=== PATIENT | male | born 1960 | race Caucasian/White ===

== ENCOUNTER 2017-11-16 06:01 | Inpatient (IN) ==
[2017-11-12 14:54] LABS: Appearance,Urine CLEAR; Bilirubin,Urine NEG (NEG); Color,Urine STRAW; Glucose,Urine (UA) NEGATIVE (NEG); Leukocyte Esterase,Urine NEG /uL (NEG); Protein,Urine NEG (NEG); Specific Gravity,Urine 1.011 (1.000-1.035); Urine Blood NEG mg/dL (<0.03); Urobilinogen,Urine NEG (NEG)
[2017-11-12 14:55] LABS: Basophils # (Auto) 0 K/mcL (0.0-0.3); Basophils % (Auto) 0.4 % (0.0-2.0); Blood Urea Nitrogen 20 mg/dl (6-20); Eosinophils # (Auto) 0.5 K/mcL (0.0-0.7); Eosinophils % (Auto) 5.4 % (0.0-7.0); Granulocytes % (Auto) 47.4 % (38.0-78.0); Lymphocytes # (Auto) 3.5 K/mcL (1.5-4.8); Lymphocytes % (Auto) 41.1 % (15.5-49.0); Mean Cell Volume 89.8 fL (80.0-100.0); Mean Corpuscular HGB Conc 33.4 g/dL (31.0-36.0); Monocytes # (Auto) 0.5 K/mcL (0.1-0.9); Monocytes % (Auto) 5.7 % (1.0-12.0); Platelet Count 182 K/mcL (140-440); RBC 4.94 M/mcL (4.50-5.90); Red Cell Distribution Width 14.1 % (11.5-14.5)
[2017-11-16] MEDS ORDERED: CELECOXIB 200 MG CAPSULE PO SCH (07:00)
[2017-11-16] MEDS ORDERED: 0.9 % SODIUM CHLORIDE 9 ML, KETOROLAC 30 MG, ROPIVACAINE HCL/PF 49.5 ML, EPINEPHrine 0.... IJ SCH (07:00)
[2017-11-16] MEDS ORDERED: oxyCODONE 10 MG TAB.ER.12H PO SCH (07:00)
[2017-11-16] MEDS ORDERED: ceFAZolin 1 GM VIAL IV SCH (07:00)
[2017-11-16] MEDS ORDERED: ACETAMINOPHEN 500 MG TABLET PO SCH (07:00)
[2017-11-16] MEDS ORDERED: PREGABALIN 75 MG CAPSULE PO SCH (07:00)
[2017-11-16] MEDS ORDERED: IPRATROPIUM/ALBUTEROL 3 ML AMPUL.NEB NEB ONE (07:54)
[2017-11-16] MEDS ORDERED: GLYCOPYRROLATE 0.2 MG/ML VIAL IV ONE (08:25)
[2017-11-16] MEDS ORDERED: KETAMINE 100 MG/ML ML IV ONE (08:25)
[2017-11-16] MEDS ORDERED: MIDAZOLAM 2 MG/2 ML VIAL IV ONE (08:25)
[2017-11-16] MEDS ORDERED: EPINEPHrine 1 MG/10 ML (1:10,000) SYRINGE IV ONE (08:25)
[2017-11-16] MEDS ORDERED: ROPIVACAINE HCL/PF 20 ML VIAL IJ ONE (08:25)
[2017-11-16] MEDS ORDERED: DEXAMETHASONE 10 MG/ML VIAL IV ONE (08:25)
[2017-11-16] MEDS ORDERED: PROPOFOL 200 MG/20 ML VIAL IV ONE (08:25)
[2017-11-16] MEDS ORDERED: TRANEXAMIC ACID 1,000 MG/10 ML VIAL IV ONE ×2 (08:25→10:55)
[2017-11-16] MEDS ORDERED: ONDANSETRON 4 MG/2 ML VIAL IV ONE (08:25)
[2017-11-16] MEDS ORDERED: LIDOCAINE HCL/PF 100 MG/5 ML SYRINGE IV ONE (08:25)
[2017-11-16] MEDS ORDERED: ePHEDrine 50 MG/ML AMPUL IV ONE (08:25)
[2017-11-16] MEDS ORDERED: PHENYLEPHRINE 10 MG/ML VIAL IV ONE (08:25)
[2017-11-16] MEDS ORDERED: LACTATED RINGERS 250 ML IV PRN (08:57)
[2017-11-16] MEDS ORDERED: NALOXONE HCL 0.4 MG/ML VIAL IV PRN (08:57)
[2017-11-16] MEDS ORDERED: MEPERIDINE 25 MG/ML SYRINGE IV PRN (08:57)
[2017-11-16] MEDS ORDERED: KETOROLAC 30 MG/ML VIAL IV PRN (08:57)
[2017-11-16] MEDS ORDERED: fentaNYL 100 MCG/2 ML VIAL IV PRN (08:57)
[2017-11-16] MEDS ORDERED: BENZOCAINE/MENTHOL 1 LOZENGE PO PRN ×2 (08:57→10:55)
[2017-11-16] MEDS ORDERED: ONDANSETRON 4 MG/2 ML VIAL IV PRN ×2 (08:57→10:55)
[2017-11-16] MEDS ORDERED: METHOCARBAMOL 1,000 MG/10 ML VIAL IV PRN (08:57)
[2017-11-16] MEDS ORDERED: IPRATROPIUM/ALBUTEROL 3 ML AMPUL.NEB NEB PRN (08:57)
[2017-11-16] MEDS ORDERED: LACTATED RINGERS 1,000 ML IV SCH (09:00)
[2017-11-16] MEDS ORDERED: GENTAMICIN SULFATE 800 MG/20 ML VIAL IR ONE (09:16)
[2017-11-16] MEDS ORDERED: BISACODYL 10 MG SUPP.RECT PR PRN (10:55)
[2017-11-16] MEDS ORDERED: ACETAMINOPHEN 325 MG TABLET PO PRN (10:55)
[2017-11-16] MEDS ORDERED: FLEETS ADULT ENEMA PR PRN (10:55)
[2017-11-16] MEDS ORDERED: MAGNESIUM HYDROXIDE 30 ML ORAL.SUSP PO PRN (10:55)
[2017-11-16] MEDS ORDERED: HYDROmorphone 2 MG/ML VIAL IV PRN (10:55)
[2017-11-16] MEDS ORDERED: TEMAZEPAM 15 MG CAPSULE PO PRN (10:55)
[2017-11-16] MEDS ORDERED: POLYETHYLENE GLYCOL 3350 17 GM PACKET PO PRN (10:55)
--- NOTE | 2017-11-16 11:51 | XRay Report ---
HISTORY: Reason for Exam:Post-Op Total Knee FINDINGS: There is a well positioned total knee prosthesis. No fracture is present. The large calcified loose bodies seen within the joint on the preoperative CT done on 10/19/17 have been removed. IMPRESSION: Well-positioned right knee prosthesis Interpreted and Authenticated by: Justo Shannon 11/16/17
[2017-11-16] MEDS: FLUMAZENIL 0.1 MG/ML ML IV PRN ×2 (12:11→12:15)
[2017-11-16] MEDS: 0.45 % SODIUM CHLORIDE 1,000 ML IV SCH ×2 (13:34→22:05)
[2017-11-16] MEDS: KETOROLAC 15 MG/ML VIAL IV SCH ×3 (13:34→23:52)
[2017-11-16] MEDS: HYDROcodone/APAP 10/325MG TABLET PO PRN ×2 (13:35→17:47)
[2017-11-16] MEDS: 0.9 % SODIUM CHLORIDE 10 ML SYRINGE IV SCH ×2 (13:35→22:05)
--- NOTE | 2017-11-16 16:23 | Brief Operative Note ---
Date of procedure: 11/16/17 Pre-op diagnosis: right knee djd severe Post-op diagnosis: same Procedure: right tka with wade robot Grafts/Implants: Yes Anesthesia: GETA Complications: none Complications Description: 11/16/17 16:23 none Surgeon: Jesu Ordoñez Computer Network Specialist: Adis Hurt Estimated blood loss (cc): 50 Tourniquet Time (Minutes): 75 Specimens Removed/Pathology: none sent Condition: stable Disposition: PACU
[2017-11-16] MEDS: ceFAZolin 1 GM VIAL IV SCH ×2 (16:35→23:51)
[2017-11-16] MEDS: metFORMIN 500 MG TABLET PO SCH (16:36)
--- NOTE | 2017-11-16 16:45 | Operative Note ---
DATE OF OPERATION: 11/16/2017 PREOPERATIVE DIAGNOSIS: Right knee degenerative arthritis. POSTOPERATIVE DIAGNOSIS: Right knee degenerative arthritis. PROCEDURE: Right total knee arthroplasty. SURGEON: Jesu Ordoñez M.D. MATERIALS HANDLING COORDINATOR: Adis Hurt PA-C. ANESTHESIA: General LMA anesthesia. COMPLICATIONS: None. TOURNIQUET TIME: Approximately 75 minutes. IMPLANTS PLACED: A size 8 femur and size 8 tibial baseplate with an 11 mm poly insert and a 40 mm eccentric patella. These were components were cemented. BLOOD LOSS: About 25 mL. DESCRIPTION OF PROCEDURE: The patient was brought to the operating room and put to sleep with general LMA anesthesia. Once asleep, the patient had the right knee and leg sterilely prepped and draped in the usual sterile fashion. Once this was done, we then went in through an anterior approach and a midvastus through the capsule. We exposed the joint showing some of the most severe arthritis with varus malalignment of about 13 degrees with flexion contracture of 20 degrees. The gaps were very unbalanced and severe wear medially and throughout the knee with loose bodies noted. At this point, we proceeded with a total knee arthroplasty after a time out had been performed. We exposed the joint, placed pins above and below the knee and used the Sky[employer] robot to evaluate all the areas in the knee. We registered the thirty points on the femur and tibia, registered intra-articular pin, registered center of hip rotation, registered medial and lateral malleoli. Once done, we then brought in the robot after exposing the joint with some difficulty. We tried to remove most of the spurs and balance the knee for the preoperative plan. Once we had the implant positioned and balanced the ligaments as planned, we removed the osteophytes and we removed multiple loose bodies. At this point, we brought in the robot, made our tibial cut, made our distal femoral cut. Anterior and posterior chamfer cuts were all made. The bony fragments were removed. We trialed the size 8 tibial baseplate with the robot helping in positioning the rotation and trialed a 9 and then 11 poly. We had release using an osteotome on the medial collateral ligament to elevate this to give us a straight leg as this had been so deformed. Osteophytes posteriorly were removed with osteotome, taking care to avoid neurovascular structures. These bony fragments were removed as well. We irrigated thoroughly and then trialed the components; a size 8 femur, size 8 tibial baseplate and 11 poly. This seemed to fit very nicely. We prepared the patella which was very thick. We measured 29 mm in total thickness. Once this was done, we then implanted the final implants, cemented into place. These fit very nicely. Excess cement was removed. We closed the fascial layer with a #1 Stratafix, 2-0 Vicryl and adhesive closure on the skin. Tourniquet time was 75 minutes. There were no complications. It was very difficult to get all these loose fragments out. JANENE:walter Job ID: [id number] Doc ID: [id number] Jesu Ordoñez MD
[2017-11-16] MEDS ORDERED: ASPIRIN 81 MG TAB.CHEW PO SCH (21:00)
[2017-11-16] MEDS ORDERED: NIACIN 250 MG CAP.SR.12H PO SCH (21:00)
[2017-11-16] MEDS ORDERED: SENNOSIDES 1 TABLET PO SCH (21:00)
[2017-11-16] MEDS ORDERED: FENOFIBRATE 43 MG CAPSULE PO SCH (21:00)
[2017-11-16] MEDS ORDERED: ATORVASTATIN 20 MG TABLET PO SCH (21:00)
[2017-11-16] MEDS: FISH OIL 1,000 MG CAPSULE PO SCH (21:58)
[2017-11-16] MEDS: ASPIRIN 325 MG ENTERIC COATED TABLET PO SCH (22:01)
[2017-11-16] MEDS: DOCUSATE SODIUM 100 MG CAPSULE PO SCH (22:01)
[2017-11-17] MEDS: KETOROLAC 15 MG/ML VIAL IV SCH ×2 (05:49→11:25)
[2017-11-17] MEDS: 0.9 % SODIUM CHLORIDE 10 ML SYRINGE IV SCH ×2 (05:49→14:15)
[2017-11-17] MEDS: HYDROcodone/APAP 10/325MG TABLET PO PRN ×2 (05:56→13:37)
--- NOTE | 2017-11-17 07:49 | Orthopedic Progress Note ---
Subjective Patient information: Note initiated : 11/17/17 at 7:48 am Service Date, if different from initiated Date: [] Patient: Jomar Rothman 57 y/o M admitted on 11/16/17 for right Total Arthroplasty Knee - Andrew. Chief Complaint: [Pt is stable this morning on post operative day 1 without any significant concerns or complaints. Patients vital signs have remained stable. Patients dressing is dry and is grossly instact from a neurovascular and motor standpoint. Patients 10 point ROS is otherwise negative. ] Objective Vital signs: Vital Signs Temp Pulse Pulse Resp BP Pulse Ox 11/17/17 06:40 98.0 F 84 18 100/61 92 11/17/17 04:00 97.6 F 78 20 115/67 91 11/17/17 00:00 98.1 F 77 20 109/64 94 11/16/17 21:42 85 18 92 11/16/17 20:00 98.4 F 86 22 112/65 91 11/16/17 15:19 98/59 90 11/16/17 15:06 97/60 90 11/16/17 15:02 96/56 90 11/16/17 14:37 96/58 90 11/16/17 14:34 97.3 F 98/57 93 11/16/17 13:20 90 11/16/17 13:06 79 20 106/61 91 11/16/17 13:01 77 18 106/60 91 11/16/17 12:55 80 16 103/60 91 11/16/17 12:45 76 19 108/58 92 11/16/17 12:40 75 18 100/56 92 11/16/17 12:35 87 19 106/64 91 11/16/17 12:30 78 19 111/67 91 11/16/17 12:25 84 19 112/59 91 11/16/17 12:20 83 18 120/51 90 11/16/17 12:16 76 19 134/59 90 11/16/17 12:11 80 20 130/58 90 11/16/17 12:06 98.7 F 89 17 117/83 91 11/16/17 11:51 82 16 112/60 93 11/16/17 11:36 75 17 114/59 91 11/16/17 11:31 77 16 101/50 95 11/16/17 11:26 85 17 115/58 94 07/16/18 11:21 75 16 96/52 92 11/16/17 11:16 72 16 92/45 91 11/16/17 11:11 74 16 91/46 91 11/16/17 11:06 99.4 F H 76 16 92/44 93 Intake and Output 11/16/17 11/17/17 11/17/17 21:59 05:59 13:59 Intake Total 1520 / 1520 950 / 950 Output Total 525 / 525 1125 / 1125 Balance 995 / 995 -175 / -175 Intake: Oral 1520 / 1520 950 / 950 Output: Void Amount 525 / 525 1125 / 1125 Other: Meal Dinner Percent of Meal Consumed 100% Feeding Ability Independent Weight 314 lb Intake & Output: Intake & Output 11/16/17 11/17/17 11/17/17 21:59 05:59 13:59 Intake Total 1520 / 1520 950 / 950 Output Total 525 / 525 1125 / 1125 Balance 995 / 995 -175 / -175 Weight 314 lb Intake: Oral 1520 / 1520 950 / 950 Output: Void Amount 525 / 525 1125 / 1125 Other: Meal Dinner Percent of Meal Consumed 100% Feeding Ability Independent Incision: Yes healing Incision clean and dry: Yes Dressing: Yes clean Weight bearing status: full Neurological exam IM: Yes motor sensory intact, Yes neurovascular intact Extremities exam IM: Yes Foot pink and warm, Yes neurovascular intact - Labs CBC & BMP: 11/17/17 04:52 11/12/17 11:46 Labs: Orthopedic Labs 11/12/17 11:46 PT 13.6 INR 1.0 APTT 26 11/17/17 11/12/17 04:52 11:46 Hgb 14.8 Hct 35.3 L 44.4 Assessment and Plan (1) Hx of total knee arthroplasty The patient has been educated regarding dressing care, Physical Therapy recommendations, home exercises, restrictions, and follow up appointments. The patient has had all necessary DME prescribed. The patient has remained relatively stable during their hospital course. Leave Dermabond patch intact until followup Status: Acute
--- NOTE | 2017-11-17 07:52 | Discharge Summary ---
Ortho Discharge - TKA - Patient Instructions Diet: Regular Diet Activity: activity as tolerated, weight bearing as tolerated Total Knee Protocol: For Total Knee: Start ROM JUDIT with stationary bike or rocking chair. Work on gaining full extension of knee. Posterior dislocation precautions provided. Hip abductor strengthening and gait training instructions provided. Apply Cryocuff as instructed. Dressing Care: May shower in 2 days Patient Education: Total Knee Replacement (DC) - Problem Maintenance (1) Hx of total knee arthroplasty Status: Acute - Follow Up Plan Follow Up Appointments: Jesu Ordoñez MD [Physician] - 12/01/17 2:20 pm Disposition: Home, Self-Care Prognosis: Good Rehab Potential: Good I certify that the patient requires SNF services: No Overall status at discharge: patient is progressing back to baseline - Orders For Discharge Prescriptions: Aspirin [Ecotrin] 325 mg PO BID #60 tab.ec Docusate Sodium [Colace] 100 mg PO BID #60 cap HYDROcodone/APAP 10/325MG [[place] 10-325Mg] 1 - 2 tab PO Q4HP PRN #75 tab PRN Reason: Pain Level 3-6
[2017-11-17] MEDS: FISH OIL 1,000 MG CAPSULE PO SCH (08:18)
[2017-11-17] MEDS: metFORMIN 500 MG TABLET PO SCH (08:18)
[2017-11-17] MEDS: DOCUSATE SODIUM 100 MG CAPSULE PO SCH (08:18)
[2017-11-17] MEDS: ASPIRIN 325 MG ENTERIC COATED TABLET PO SCH (08:18)
[2017-11-17] MEDS: 0.45 % SODIUM CHLORIDE 1,000 ML IV SCH (08:19)
[2017-11-17] MEDS ORDERED: OLMESARTAN MED PO SCH (09:00)
[2017-11-17] MEDS ORDERED: AMLODIPINE BES PO SCH (09:00)
[2017-11-17] MEDS ORDERED: ALLOPURINOL 300 MG TABLET PO SCH (09:00)
[2017-11-17] MEDS ORDERED: OLMESARTAN MEDOXOMIL 20 MG TABLET PO SCH (09:00)
[2017-11-17] MEDS ORDERED: [UNRECOGNIZED DRUG - OTHER] PO SCH (09:00)
[2017-11-17] MEDS ORDERED: amLODIPine 10 MG TABLET PO SCH (09:00)
== END 2017-11-17 14:00 | disposition home or self-care (01) | DRG 470 ==
LOC: MEDSUR 06:01
PROVIDERS: ADMIT Orthopaedic Surgery; ATTEND Orthopaedic Surgery

== ENCOUNTER 2018-04-19 04:54 | Inpatient (IN) ==
[2018-04-14 12:50] LABS: Basophils # (Auto) 0 K/mcL (0.0-0.3); Basophils % (Auto) 0.4 % (0.0-2.0); Eosinophils # (Auto) 0.4 K/mcL (0.0-0.7); Eosinophils % (Auto) 4.7 % (0.0-7.0); Lymphocytes # (Auto) 2.5 K/mcL (1.5-4.8); Mean Cell Volume 85.7 fL (80.0-100.0); Mean Corpuscular HGB Conc 33.6 g/dL (31.0-36.0); Mean Corpuscular Hemoglobin 28.8 pg (26.0-34.0); Monocytes # (Auto) 0.5 K/mcL (0.1-0.9); Monocytes % (Auto) 6.9 % (1.0-12.0); Platelet Count 211 K/mcL (140-440); RBC 4.89 M/mcL (4.50-5.90); Red Cell Distribution Width 14.3 % (11.5-14.5)
[2018-04-14 13:00] LABS: Blood Urea Nitrogen 17 mg/dl (6-20)
[2018-04-14 14:16] LABS: Estimated Average Glucose(eAG) 140 mg/dL; Hemoglobin A1C 6.5 % HGB (4.0-6.0)
[2018-04-14 14:33] LABS: Appearance,Urine CLEAR; Bilirubin,Urine NEG (NEG); Color,Urine YELLOW; Glucose,Urine (UA) NEGATIVE (NEG); Leukocyte Esterase,Urine NEG /uL (NEG); Protein,Urine NEG (NEG); Specific Gravity,Urine 1.025 (1.000-1.035); Urine Blood NEG mg/dL (<0.03); Urobilinogen,Urine NEG (NEG)
[2018-04-19] MEDS ORDERED: CELECOXIB 200 MG CAPSULE PO SCH (06:30)
[2018-04-19] MEDS ORDERED: ACETAMINOPHEN 500 MG TABLET PO SCH (06:30)
[2018-04-19] MEDS ORDERED: oxyCODONE 10 MG TAB.ER.12H PO SCH (06:30)
[2018-04-19] MEDS ORDERED: 0.9 % SODIUM CHLORIDE 9 ML, KETOROLAC 30 MG, ROPIVACAINE HCL/PF 49.5 ML, EPINEPHrine 0.... IJ SCH (06:30)
[2018-04-19] MEDS ORDERED: PREGABALIN 75 MG CAPSULE PO SCH (06:30)
[2018-04-19] MEDS ORDERED: ceFAZolin 1 GM VIAL IV SCH (07:00)
[2018-04-19] MEDS ORDERED: TRANEXAMIC ACID 1,000 MG/10 ML VIAL IV ONE ×2 (07:22→07:40)
[2018-04-19] MEDS ORDERED: ACETAMINOPHEN 325 MG TABLET PO PRN (07:22)
[2018-04-19] MEDS ORDERED: BENZOCAINE/MENTHOL 1 LOZENGE PO PRN ×2 (07:22→08:07)
[2018-04-19] MEDS ORDERED: TEMAZEPAM 15 MG CAPSULE PO PRN (07:22)
[2018-04-19] MEDS ORDERED: MAGNESIUM HYDROXIDE 30 ML ORAL.SUSP PO PRN (07:22)
[2018-04-19] MEDS ORDERED: FLEETS ADULT ENEMA PR PRN (07:22)
[2018-04-19] MEDS ORDERED: ONDANSETRON 4 MG/2 ML VIAL IV PRN ×2 (07:22→08:07)
[2018-04-19] MEDS ORDERED: HYDROmorphone 2 MG/ML VIAL IV PRN (07:22)
[2018-04-19] MEDS ORDERED: POLYETHYLENE GLYCOL 3350 17 GM PACKET PO PRN (07:22)
[2018-04-19] MEDS ORDERED: BISACODYL 10 MG SUPP.RECT PR PRN (07:22)
--- NOTE | 2018-04-19 07:22 | Brief Operative Note ---
Date of procedure: 04/19/18 Pre-op diagnosis: left knee djd severe Post-op diagnosis: same Procedure: left robotic tka Grafts/Implants: Yes Anesthesia: NATHAN Surgeon: Jesu Ordoñez Photographer Model: Adis Hurt Estimated blood loss (cc): 50 Tourniquet Time (Minutes): 55 Specimens Removed/Pathology: none sent Condition: stable Disposition: PACU
[2018-04-19] MEDS ORDERED: OMEPRAZOLE 20 MG CAPSULE PO PRN (07:24)
[2018-04-19] MEDS ORDERED: ONDANSETRON 4 MG/2 ML VIAL IV ONE (07:40)
[2018-04-19] MEDS ORDERED: KETAMINE 100 MG/ML ML IV ONE (07:40)
[2018-04-19] MEDS ORDERED: GLYCOPYRROLATE 0.2 MG/ML VIAL IV ONE (07:40)
[2018-04-19] MEDS ORDERED: LIDOCAINE HCL/PF 100 MG/5 ML SYRINGE IV ONE (07:40)
[2018-04-19] MEDS ORDERED: PROPOFOL 200 MG/20 ML VIAL IV ONE (07:40)
[2018-04-19] MEDS ORDERED: ROPIVACAINE HCL/PF 20 ML VIAL IJ ONE (07:40)
[2018-04-19] MEDS ORDERED: PHENYLEPHRINE 10 MG/ML VIAL IV ONE (07:40)
[2018-04-19] MEDS ORDERED: MIDAZOLAM 2 MG/2 ML VIAL IV ONE (07:40)
[2018-04-19] MEDS ORDERED: DEXAMETHASONE 10 MG/ML VIAL IV ONE (07:40)
[2018-04-19] MEDS ORDERED: METHOCARBAMOL 1,000 MG/10 ML VIAL IV PRN (08:07)
[2018-04-19] MEDS ORDERED: ACETAMINOPHEN 1,000 MG/100 ML BOTTLE IV ONE (08:07)
[2018-04-19] MEDS ORDERED: IPRATROPIUM/ALBUTEROL 3 ML AMPUL.NEB NEB PRN (08:07)
[2018-04-19] MEDS ORDERED: FLUMAZENIL 0.1 MG/ML ML IV PRN (08:07)
[2018-04-19] MEDS ORDERED: LACTATED RINGERS 250 ML IV PRN (08:07)
[2018-04-19] MEDS ORDERED: NALOXONE HCL 0.4 MG/ML VIAL IV PRN (08:07)
[2018-04-19] MEDS ORDERED: MEPERIDINE 25 MG/ML SYRINGE IV PRN (08:07)
[2018-04-19] MEDS ORDERED: fentaNYL 100 MCG/2 ML VIAL IV PRN (08:07)
[2018-04-19] MEDS ORDERED: GENTAMICIN SULFATE 800 MG/20 ML VIAL IR ONE (08:08)
[2018-04-19] MEDS ORDERED: LACTATED RINGERS 1,000 ML IV SCH (08:15)
[2018-04-19] MEDS ORDERED: [UNRECOGNIZED DRUG - OTHER] PO SCH (09:00)
[2018-04-19] MEDS ORDERED: AMLODIPINE BES PO SCH (09:00)
[2018-04-19] MEDS ORDERED: OLMESARTAN MED PO SCH (09:00)
--- NOTE | 2018-04-19 10:54 | XRay Report ---
CLINICAL INFORMATION: Left knee arthroplasty TECHNIQUE: AP and crosstable lateral left knee COMPARISON: None. FINDINGS: Status post left total knee arthroplasty. Femoral and tibial components are in anatomic positions. There is intra-articular and periarticular postsurgical soft tissue gas. There is fragmentation at the left anterior tibial tubercle. Chronicity is not certain IMPRESSION: Status post left total knee arthroplasty Interpreted and Authenticated by: Myron Obregon 04/19/18
[2018-04-19] MEDS: KETOROLAC 15 MG/ML VIAL IV SCH ×3 (11:35→23:41)
[2018-04-19] MEDS: 0.45 % SODIUM CHLORIDE 1,000 ML IV SCH ×2 (11:35→16:47)
[2018-04-19] MEDS: ceFAZolin 1 GM VIAL IV SCH ×2 (13:24→21:07)
[2018-04-19] MEDS: 0.9 % SODIUM CHLORIDE 10 ML SYRINGE IV SCH ×2 (13:25→21:00)
[2018-04-19] MEDS: FENOFIBRATE 43 MG CAPSULE PO SCH (13:53)
[2018-04-19] MEDS: HYDROcodone/APAP 10/325MG TABLET PO PRN ×2 (14:25→18:18)
[2018-04-19] MEDS: metFORMIN 500 MG TABLET PO SCH (17:09)
--- NOTE | 2018-04-19 18:30 | Discharge Summary ---
Ortho Discharge - TKA - Patient Instructions Diet: Regular Diet Activity: activity as tolerated, weight bearing as tolerated Total Knee Protocol: For Total Knee: Start ROM JUDIT with stationary bike or rocking chair. Work on gaining full extension of knee. Posterior dislocation precautions provided. Hip abductor strengthening and gait training instructions provided. Apply Cryocuff as instructed. Dressing Care: May shower in 2 days - Follow Up Plan Follow Up Appointments: Adis Hurt PA-C [Physician Peeled Potato Inspector] - Disposition: Home, Self-Care Prognosis: Good Rehab Potential: Good I certify that the patient requires SNF services: No Overall status at discharge: patient is progressing back to baseline - Orders For Discharge Prescriptions: Aspirin [Ecotrin] 325 mg PO BID #60 tab.ec Docusate Sodium [Colace] 100 mg PO BID #60 cap HYDROcodone/APAP 10/325MG [[place] 10-325Mg] 1 - 2 tab PO Q4HP PRN #75 tab PRN Reason: Pain Level 3-6
[2018-04-19] MEDS: DOCUSATE SODIUM 100 MG CAPSULE PO SCH (20:59)
[2018-04-19] MEDS ORDERED: ASPIRIN 81 MG TAB.CHEW PO SCH (21:00)
[2018-04-19] MEDS: FISH OIL 1,000 MG CAPSULE PO SCH (21:00)
[2018-04-19] MEDS ORDERED: NIACIN 250 MG CAP.SR.12H PO SCH (21:00)
[2018-04-19] MEDS: ASPIRIN 325 MG ENTERIC COATED TABLET PO SCH (21:00)
[2018-04-19] MEDS ORDERED: ATORVASTATIN 20 MG TABLET PO SCH (21:00)
[2018-04-19] MEDS ORDERED: SENNOSIDES 1 TABLET PO SCH (21:00)
[2018-04-20] MEDS: 0.45 % SODIUM CHLORIDE 1,000 ML IV SCH (03:21)
[2018-04-20] MEDS: HYDROcodone/APAP 10/325MG TABLET PO PRN ×3 (03:42→11:51)
[2018-04-20] MEDS: 0.9 % SODIUM CHLORIDE 10 ML SYRINGE IV SCH (05:30)
[2018-04-20] MEDS: KETOROLAC 15 MG/ML VIAL IV SCH ×2 (05:30→11:50)
--- NOTE | 2018-04-20 07:39 | Orthopedic Progress Note ---
Subjective Patient information: Note initiated : 04/20/18 at 7:37 am Service Date, if different from initiated Date: [] Patient: Jomar Rothman 57 y/o M admitted on 04/19/18 for Left Total Knee Arthroplasty Andrew. Chief Complaint: [Pt is stable this morning on post operative day 1 without any significant concerns or complaints. Patients vital signs have remained stable. Patients dressing is dry and is grossly intact from a neurovascular and motor standpoint. Patients 10 point ROS is otherwise negative. ] Objective Vital signs: Vital Signs Temp Pulse Resp BP Pulse Ox 04/20/18 06:47 98.2 F 75 16 109/62 91 04/20/18 04:00 98.4 F 71 16 92/64 91 04/20/18 00:00 98.0 F 75 14 102/67 91 04/19/18 19:46 98.4 F 89 14 113/50 90 04/19/18 17:18 92 04/19/18 16:00 97.6 F 18 112/78 92 04/19/18 14:24 114/77 92 04/19/18 13:52 94 04/19/18 13:24 101/65 95 04/19/18 12:54 92/57 93 04/19/18 12:24 89/58 92 04/19/18 12:09 97/59 93 04/19/18 11:54 107/66 93 04/19/18 11:39 101/67 91 04/19/18 11:30 94 04/19/18 11:24 95/61 90 04/19/18 11:11 97.8 F 74 15 108/65 90 04/19/18 10:56 98.1 F 78 15 115/62 93 04/19/18 10:41 98.2 F 84 18 123/107 92 04/19/18 10:26 98.1 F 69 16 107/49 91 04/19/18 10:21 73 15 104/60 92 04/19/18 10:16 67 13 88/48 90 04/19/18 10:11 97.5 F 77 14 100/45 94 Intake and Output 04/19/18 04/20/18 04/20/18 21:59 05:59 13:59 Intake Total 1600 / 1600 Output Total 600 / 600 Balance 1000 / 1000 Intake: Oral 1600 / 1600 Output: Void Amount 600 / 600 Other: # Voids 1 Weight 320 lb 8 oz Intake & Output: Intake & Output 04/19/18 04/20/18 04/20/18 21:59 05:59 13:59 Intake Total 1600 / 1600 Output Total 600 / 600 Balance 1000 / 1000 Weight 320 lb 8 oz Intake: Oral 1600 / 1600 Output: Void Amount 600 / 600 Other: # Voids 1 Incision: Yes healing Incision clean and dry: Yes Dressing: Yes clean Weight bearing status: full Neurological exam IM: Yes motor sensory intact, Yes neurovascular intact Extremities exam IM: Yes Foot pink and warm, Yes neurovascular intact - Labs CBC & BMP: 04/20/18 05:13 04/14/18 11:35 Labs: 04/20/18 04/14/18 05:13 11:36 Hgb 14.1 Hct 33.8 L 41.9 Assessment and Plan (1) Hx of total knee arthroplasty The patient has been educated regarding dressing care, Physical Therapy recommendations, home exercises, restrictions, and follow up appointments. The patient has had all necessary DME prescribed. The patient has remained relatively stable during their hospital course. Leave Dermabond patch intact until followup Status: Acute
--- NOTE | 2018-04-20 08:26 | Operative Note ---
DATE OF OPERATION: 04/19/2018 PREOPERATIVE DIAGNOSIS: A 57-year-old with left knee degenerative arthritis. POSTOPERATIVE DIAGNOSIS: A 57-year-old with left knee degenerative arthritis. PROCEDURE: Left robotic total knee arthroplasty using the [employer] robot. SURGEON: Jesu Ordoñez M.D. TRACK LAYING SUPERVISOR: Adis Hurt PA-C. ANESTHESIA: General LMA anesthesia. TOTAL TOURNIQUET TIME: 55 minutes. COMPLICATIONS: None. IMPLANTS: A size 8 femur, size 8 tibial baseplate with a standard poly and a 40 mm oval patellar button. DESCRIPTION OF PROCEDURE: The patient had the left leg sterilely prepped and draped in the usual sterile fashion. It was confirmed as the operative site by timeout, consent form, x-rays and initials on the skin. We made a midline incision, a midvastus approach performed. We subluxed the patella laterally, preparing this first because of the thickness of the patella and width. The size of the joint was huge. It was actually an 8 mm joint, but the spurs were even larger. The spurs were removed. We placed pins above and below the knee and registered the center of hip rotation, medial and lateral malleolus, intraarticular pins, and thirty points of the bone on the femur and tibia were registered. We balanced the knee at 90 and 15 degrees. We placed the implant accordingly to balance this, and we brought in the robot and made the bony cuts. The bony cuts were removed and the trial was placed. External rotation of the tibial baseplate was set by the robot as well. We irrigated thoroughly and then placed the standard thickness poly. This seemed to give good tension of the ligaments, achieving full extension where the patient had 19 degrees of flexion contracture prior to the surgery and substantial amount of varus. This corrected him back near to 1 degree and almost 0 degrees flexion contracture. We removed spurs posteriorly, prepared the patella as I noted earlier with a 40 mm patella. We then cemented into place after trialing all these components. These were cemented. Excess cement was removed. We kept the knee at 45 degrees until the cement was hardened. We irrigated thoroughly and checked for any residual cement and then closed the midvastus approach with #1 Stratafix x3 sutures. The patient tolerated this well. There was no complication. Skin was closed with Stratafix and 2-0 Vicryl and adhesive closure. The patient tolerated this well and the other pins were removed, intra-articular pins and the array pins above and below the knee were removed. These portals were closed with 4-0 nylon. Sterile bandage was deflated. The tourniquet was also deflated. There was no complication. Blood loss was approximately 50 mL. [email or web address]:walter Job ID: [id number] Doc ID: [id number] Jesu Ordoñez MD
[2018-04-20] MEDS ORDERED: amLODIPine 10 MG TABLET PO SCH (09:00)
[2018-04-20] MEDS ORDERED: ALLOPURINOL 300 MG TABLET PO SCH (09:00)
[2018-04-20] MEDS ORDERED: OLMESARTAN MEDOXOMIL 20 MG TABLET PO SCH (09:00)
[2018-04-20] MEDS: FISH OIL 1,000 MG CAPSULE PO SCH (09:28)
[2018-04-20] MEDS: ASPIRIN 325 MG ENTERIC COATED TABLET PO SCH (09:28)
[2018-04-20] MEDS: metFORMIN 500 MG TABLET PO SCH (09:28)
[2018-04-20] MEDS: FENOFIBRATE 43 MG CAPSULE PO SCH (09:28)
[2018-04-20] MEDS: DOCUSATE SODIUM 100 MG CAPSULE PO SCH (09:29)
== END 2018-04-20 12:45 | disposition home or self-care (01) | DRG 470 ==
LOC: MEDSUR 04:54
PROVIDERS: ADMIT Orthopaedic Surgery; ATTEND Orthopaedic Surgery
CPT/HCPCS: 62322; 90686; 97161; C1713; C1776; J0171; J0690; J1100; J1580; J1885; J2001; J2250; J2370; J2405; J2795; J7050; J7120